=== PATIENT | male | born 1965 | race Two or more races ===

== ENCOUNTER 2019-02-21 04:28 | Emergency (ER) | payer OTHER ==
[~2019-02-21] VITALS: Ht 175.3 cm; Wt 149.7 kg
[2019-02-21 05:54] LABS: Basophils # (auto) 0 uL; Basophils % (auto) 0.4 % (0.0-2.0); Eosinophils # (auto) 0.1 uL; Eosinophils % (auto) 0.8 % (0.0-7.0); Hematocrit 39.2 % (41.0-53.0); Hemoglobin 13.4 g/dL (13.5-17.5); Lymphocytes # (auto) 0.8 uL; Lymphocytes % (auto) 11.8 % (10.0-50.0); Mean Corpuscular Hemoglobin 32.2 pg (28.0-32.0); Mean Corpuscular Hgb Conc. 34.3 g/dL (32.0-36.0); Mean Corpuscular Volume 93.9 fL (80.0-100.0); Monocytes # (auto) 0.4 uL; Neutrophils # (auto) 5.7 uL; Platelet Count (auto) 178 10^3/uL (140-450); Red Blood Cells 4.17 10^6/uL (4.5-5.90); Red Cell Distribution Width 13.6 % (11.8-14.3); White Blood Cell 7.1 10^3/uL (4.4-10.8)
[2019-02-21 06:06] LABS: Alanine Aminotransferase 26 U/L (16-61); Albumin 3.2 g/dL (3.4-5.0); Anion Gap 7 (5-15); Aspartate Aminotransferase 16 U/L (15-37); Blood Urea Nitrogen 24 mg/dL (7-18); Carbon Dioxide 29 mmol/L (21-32); Chloride 106 mmol/L (98-107); Glucose 108 mg/dL (74-106); Potassium 3.9 mmol/L (3.5-5.1); Sodium 142 mmol/L (136-145)
[2019-02-21 06:12] LABS: Alkaline Phosphatase 71 U/L (45-117); BUN/Creatinine Ratio 16.4; Bilirubin, Total 0.4 mg/dL (0.2-1.0); GFR African American 65 mL/min; GFR Non-African American 54 mL/min; Total Protein 6.6 g/dL (6.4-8.2)
[2019-02-21] MEDS ORDERED: SODIUM CHLORIDE 0.9% 1,000 ML IV ONE (08:41)
[2019-02-21 09:21] LABS: Urine Bacteria NONE SEEN /hpf (None Seen); Urine Blood Negative /uL (Negative); Urine Hyaline Cast FEW /lpf (0 - 2); Urine Specific Gravity 1.018 (1.001-1.035); Urine WBC <1 /hpf (0 - 3)
[2019-02-21 09:29] LABS: INR 1.09 (0.9-1.15); Partial Thromboplastin Time 30.4 sec (23.64-32.05)
[2019-02-21 09:39] LABS: Alcohol, Urine < 3.0 mg/dL (0-5); Amphetamine Screen, Urine NEGATIVE (NEGATIVE); Barbiturate Scree,Urine NEGATIVE (NEGATIVE); Benzodiazephine Screen, Urine NEGATIVE (NEGATIVE); Cannabinoid Screen, Urine NEGATIVE (NEGATIVE); Cocaine Screen, Urine NEGATIVE (NEGATIVE); Opiate Scree,Urine NEGATIVE (NEGATIVE); Phencyclidine Screen, Urine NEGATIVE (NEGATIVE)
[2019-02-21] MEDS ORDERED: CAR3125T OR (10:35)
[2019-02-21] MEDS ORDERED: ISO60SRT PO (10:35)
[2019-02-21] MEDS ORDERED: DIGO1TAB35 PO (10:35)
[2019-02-21] MEDS ORDERED: ALL100T PO (10:35)
[2019-02-21] MEDS ORDERED: CHOL20007 PO (10:35)
[2019-02-21] MEDS ORDERED: APIX5TAB PO (10:35)
[2019-02-21 12:00] VITALS: BP 111/69
== END 2019-02-21 12:27 | disposition home or self-care (01) ==
LOC: EDBD 04:28 → ER 04:28
DX: I42.0 Dilated cardiomyopathy (principal); R55 Syncope and collapse; N18.9 Chronic kidney disease, unspecified; E46 Unspecified protein-calorie malnutrition; I48.91 Unspecified atrial fibrillation; I25.10 Atherosclerotic heart disease of native coronary artery without angina pectoris; Z95.0 Presence of cardiac pacemaker
CPT/HCPCS: 36415; 70450; 71045; 80053; 80307; 81001; 83735; 84484; 85025; 85379; 85610; 85730; 93005; 94761; 96360; 96361; 99284; J7030

== ENCOUNTER 2019-09-21 21:20 | Emergency (ER) | payer OTHER ==
[~2019-09-21] VITALS: Ht 175.3 cm; Wt 136.1 kg
[~2019-09-21 21:20] MED LIST: ALL100T PO; APIX5TAB PO; CAR3125T OR; CHOL20007 PO; DIGO1TAB35 PO; ISO60SRT PO
[2019-09-21] MEDS ORDERED: dilTIAZem 25 MG/5 ML VIAL IV ONE ×2 (21:37→21:45)
[2019-09-21 21:43] LABS: Basophils # (auto) 0.1 10 ^3/uL (0-0.2); Basophils % (auto) 0.7 % (0.0-2.0); Eosinophils # (auto) 0.1 10 ^3/uL (0-0.8); Eosinophils % (auto) 0.7 % (0.0-7.0); Hemoglobin 16.3 g/dL (13.5-17.5); Lymphocytes # (auto) 3.1 10 ^3/uL (0.4-5.4); Lymphocytes % (auto) 22.7 % (10.0-50.0); Mean Corpuscular Hemoglobin 30.6 pg (28.0-32.0); Mean Corpuscular Hgb Conc. 33.3 g/dL (32.0-36.0); Monocytes % (auto) 7.5 % (0.0-12.0); Neutrophils # (auto) 9.2 10 ^3/uL (1.6-8.6); Neutrophils % (auto) 68.4 % (37.0-80.0); Nucleated Red Blood Cells % 0.3 %; Platelet Count (auto) 239 10^3/uL (140-450); Red Blood Cells 5.33 10^6/uL (4.5-5.90); Red Cell Distribution Width 14.4 % (11.8-14.3); White Blood Cell 13.5 10^3/uL (4.4-10.8)
[2019-09-21] MEDS ORDERED: dilTIAZem 120MG ER CAP PO ONE (21:45)
[2019-09-21 21:59] LABS: Anion Gap 7 (5-15); Blood Urea Nitrogen 23 mg/dL (7-18); Carbon Dioxide 29 mmol/L (21-32); Chloride 103 mmol/L (98-107); Glucose 138 mg/dL (74-106); INR 1.16 (0.9-1.15); Magnesium 1.6 mg/dL (1.6-2.6); Partial Thromboplastin Time 35.6 sec (23.64-32.05); Potassium 3.1 mmol/L (3.5-5.1); Sodium 139 mmol/L (136-145)
[2019-09-21 22:02] LABS: Alanine Aminotransferase 25 U/L (16-61); Aspartate Aminotransferase 21 U/L (15-37); BUN/Creatinine Ratio 14.4; GFR African American 59 mL/min; GFR Non-African American 48 mL/min
[2019-09-21 22:06] LABS: Alkaline Phosphatase 90 U/L (45-117); Bilirubin, Total 1.5 mg/dL (0.2-1.0); Total Protein 8.2 g/dL (6.4-8.2)
[2019-09-21 23:36] VITALS: BP 132/76
[2019-09-22] MEDS ORDERED: dilTIAZem 25 MG/5 ML VIAL IV ONE
== END 2019-09-22 00:40 | disposition home or self-care (01) ==
LOC: ER 21:21
DX: I48.20 Chronic atrial fibrillation, unspecified (principal); Z91.14 Patient's other noncompliance with medication regimen; I25.10 Atherosclerotic heart disease of native coronary artery without angina pectoris
CPT/HCPCS: 36415; 71045; 80053; 83735; 83880; 84443; 84484; 85025; 85379; 85610; 85730; 93005; 96374; 96376

== ENCOUNTER 2019-10-02 18:44 | Inpatient (IN) | payer OTHER ==
[~2019-10-02] VITALS: Ht 175.3 cm; Wt 144.2 kg
[2019-10-02 19:10] LABS: Basophils # (auto) 0.2 10 ^3/uL (0-0.2); Basophils % (auto) 1.4 % (0.0-2.0); Eosinophils # (auto) 0.1 10 ^3/uL (0-0.8); Eosinophils % (auto) 0.9 % (0.0-7.0); Hematocrit 46.5 % (41.0-53.0); Hemoglobin 15.5 g/dL (13.5-17.5); Lymphocytes # (auto) 2.9 10 ^3/uL (0.4-5.4); Lymphocytes % (auto) 24.9 % (10.0-50.0); Mean Corpuscular Hemoglobin 30.7 pg (28.0-32.0); Mean Corpuscular Hgb Conc. 33.3 g/dL (32.0-36.0); Mean Corpuscular Volume 92.4 fL (80.0-100.0); Neutrophils # (auto) 7.4 10 ^3/uL (1.6-8.6); Neutrophils % (auto) 63.8 % (37.0-80.0); Nucleated Red Blood Cells % 0.2 %; Platelet Count (auto) 226 10^3/uL (140-450); Red Blood Cells 5.03 10^6/uL (4.5-5.90); Red Cell Distribution Width 15.3 % (11.8-14.3); White Blood Cell 11.6 10^3/uL (4.4-10.8)
[2019-10-02 19:34] LABS: Albumin 3.5 g/dL (3.4-5.0); Anion Gap 6 (5-15); Blood Urea Nitrogen 26 mg/dL (7-18); Calcium 8.3 mg/dL (8.5-10.1); Carbon Dioxide 28 mmol/L (21-32); Chloride 105 mmol/L (98-107); Glucose 99 mg/dL (74-106); Potassium 3.7 mmol/L (3.5-5.1); Sodium 139 mmol/L (136-145)
[2019-10-02 19:40] LABS: Alanine Aminotransferase 23 U/L (16-61); Alkaline Phosphatase 89 U/L (45-117); Aspartate Aminotransferase 16 U/L (15-37); BUN/Creatinine Ratio 18.2; Bilirubin, Total 0.9 mg/dL (0.2-1.0); GFR African American 67 mL/min; GFR Non-African American 55 mL/min; Total Protein 7.6 g/dL (6.4-8.2)
[2019-10-02] MEDS ORDERED: DIGOXIN (250MCG/ML) 2 ML AMPULE IV ONE (20:00)
[2019-10-02 20:52] LABS: INR 1.18 (0.9-1.15); Partial Thromboplastin Time 36.4 sec (23.64-32.05)
[2019-10-02] MEDS ORDERED: CARVEDILOL 3.125 MG TAB PO ONE (21:15)
[2019-10-02] MEDS ORDERED: APIXABAN 5 MG TAB PO SCH (22:00)
[2019-10-02] MEDS ORDERED: NITROGLYCERIN 0.4 MG SL TAB SL PRN (23:00)
[2019-10-02] MEDS ORDERED: MORPHINE SULF INJ 2 MG/ML SYRINGE 1ML IV PRN (23:00)
[2019-10-03] VITALS (8 sets, daily range): BP systolic 105–138; BP diastolic 56–92
[2019-10-03] MEDS ORDERED: ALLO300T2 PO (01:15)
[2019-10-03] MEDS ORDERED: POTA10TA51 PO (01:19)
[2019-10-03] MEDS ORDERED: BUME2TAB5 PO (01:19)
--- NOTE | 2019-10-03 02:25 | NUR ---
Telemetry admit from [facility] admitted to Telemetry unit after SBAR received. Patient oriented to Christin Curtis, primary RN, unit, room, bed, and unit policies regarding patient care and visiting hours. Patient now on continuous telemetry monitoring, tele box # 68 and telemetry reading on arrival to unit is ATRIAL FIB 92. Patient placed on bedside oxygen, weighed by bedscale and encouraged to call if they need something. All questions and concerns addressed, patient verbalized understanding. Note:
--- NOTE | 2019-10-03 06:09 | NUR ---
PT RESTING WITH EYES CLOSED BUT AWAKENS EASILY; DENIES PAIN OR DISCOMFORT;CALL LIGHT IN REACH.
--- NOTE | 2019-10-03 07:30 | NUR ---
Opening Shift Note RECEIVED REPORT FORM NOC RN. Assumed care of patient, awake and alert. No S/S of distress/SOB or pain. BED IN LOWEST, LOCKED POSITION WITH SIDERAILS UP x2 AND CALL LIGHT WITHIN REACH. Instructed on POC and to call for assist PRN, will continue to monitor for changes Q1hr and PRN.
[2019-10-03] MEDS: BUMETANIDE 1 MG TAB PO SCH ×2 (08:24→18:01)
[2019-10-03] MEDS ORDERED: ISOSORBIDE MONONITRATE ER 60 MG TAB PO SCH (10:00)
[2019-10-03] MEDS ORDERED: CARVEDILOL 3.125 MG TAB PO SCH (10:00)
[2019-10-03] MEDS ORDERED: DIGOXIN 0.125 MG TAB PO SCH (10:00)
[2019-10-03] MEDS: APIXABAN 5 MG TAB PO SCH ×2 (11:36→21:13)
[2019-10-03] MEDS: CHOLECALCIFEROL (VITD3) 1,000UNIT=25mCg TAB PO SCH (11:36)
[2019-10-03] MEDS: ALLOPURINOL 100 MG TAB PO SCH (11:37)
--- NOTE | 2019-10-03 15:25 | NUR ---
DR. ROMERO AT BEDSIDE.
--- NOTE | 2019-10-03 15:29 | NUR ---
DR. ROMERO ADVISED THAT PATIENT'S AICD DISCRIMINATORS NEED TO BE CHANGED. INAPPROPRIATELY SHOCKING FOR AFIB.
--- NOTE | 2019-10-03 15:30 | NUR ---
CALL PLACED TO [facility] FOR INTERROGATION OF PATIENT'S AICD. REP ADVISED THEY WOULD CONTACT LOCAL REP.
--- NOTE | 2019-10-03 16:15 | NUR ---
LOCAL REP FROM [facility] CALLED. ADVISED THEY WOULD BE OUT TOMORROW MORNING FOR AICD INTERROGATION.
[2019-10-03] MEDS: CARVEDILOL 12.5 MG TAB PO SCH (17:30)
--- NOTE | 2019-10-03 20:33 | NUR ---
Ambulation: Patient ambulated to bathroom with steady gait. Patient able to void without difficulty.Patient had a HR 150 per cardiac monitor. Patient ambulated back to bed. Patient's HR now is 93. Denies pain, SOB , chest discomfort. Will continue to monitor.
[2019-10-04 05:00] VITALS: BP 122/88
[2019-10-04] MEDS: BUMETANIDE 1 MG TAB PO SCH (06:44)
--- NOTE | 2019-10-04 08:00 | NUR ---
[facility] at bedside interrogating AICD.
[2019-10-04 08:11] VITALS: BP 120/83
[2019-10-04] MEDS: APIXABAN 5 MG TAB PO SCH (08:40)
[2019-10-04] MEDS: CARVEDILOL 12.5 MG TAB PO SCH (08:40)
[2019-10-04] MEDS: CHOLECALCIFEROL (VITD3) 1,000UNIT=25mCg TAB PO SCH (08:40)
[2019-10-04] MEDS: ALLOPURINOL 100 MG TAB PO SCH (08:41)
--- NOTE | 2019-10-04 10:51 | NUR ---
Patient states he does not want home health. He is ready to go home and had already being followed by [facility].
== END 2019-10-04 11:30 | disposition home or self-care (01) | DRG 206 ==
LOC: ER 18:44 → TELE 18:45 → TELE-WESTW 10-03 00:29
PROVIDERS: ADMIT Hospitalist; ATTEND Hospitalist
DX: T82.118A Breakdown (mechanical) of other cardiac electronic device, initial encounter (principal); I42.8 Other cardiomyopathies; I50.9 Heart failure, unspecified; E66.01 Morbid (severe) obesity due to excess calories; Z68.42 Body mass index [BMI] 45.0-49.9, adult; I48.91 Unspecified atrial fibrillation; E87.6 Hypokalemia; Z95.810 Presence of automatic (implantable) cardiac defibrillator; Z79.01 Long term (current) use of anticoagulants; Z79.899 Other long term (current) drug therapy
CPT/HCPCS: 36415; 71045; 80053; 83880; 84443; 84484; 85025; 85610; 85730; 87081; 93005; 96374; G0378

== ENCOUNTER 2023-06-30 05:47 | Emergency (ER) | payer OTHER ==
[~2023-06-30] VITALS: Ht 175.3 cm; Wt 152.0 kg
[~2023-06-30 05:47] MED LIST changes: -ALL100T PO; +ALLO300T2 PO; +BUME2TAB5 PO; -DIGO1TAB35 PO; -ISO60SRT PO; +POTA10TA51 PO
[2023-06-30] MEDS: levETIRAcetam 500 MG TAB PO ONE (07:31)
[2023-06-30 07:36] LABS: Basophils # (auto) 0 10 ^3/uL (0-0.2); Basophils % (auto) 0.6 % (0.0-2.0); Eosinophils # (auto) 0 10 ^3/uL (0-0.8); Eosinophils % (auto) 0.6 % (0.0-7.0); Hematocrit 45.7 % (41.0-53.0); Hemoglobin 15.1 g/dL (13.5-17.5); Lymphocytes # (auto) 0.8 10 ^3/uL (0.4-5.4); Mean Corpuscular Hemoglobin 31.7 pg (28.0-32.0); Mean Corpuscular Hgb Conc. 33.1 g/dL (32.0-36.0); Mean Corpuscular Volume 95.7 fL (80.0-100.0); Monocytes # (auto) 0.4 10 ^3/uL (0-1.3); Monocytes % (auto) 5.7 % (0.0-12.0); Neutrophils # (auto) 6.1 10 ^3/uL (1.6-8.6); Neutrophils % (auto) 82.1 % (37.0-80.0); Red Blood Cells 4.78 10^6/uL (4.5-5.90); Red Cell Distribution Width 14.2 % (11.8-14.3); White Blood Cell 7.5 10^3/uL (4.4-10.8)
[2023-06-30 08:04] LABS: Chloride 108 mmol/L (98-107); Potassium 4.7 mmol/L (3.5-5.1); Sodium 141 mmol/L (136-145)
[2023-06-30 08:05] LABS: Anion Gap 4 (5-15); Carbon Dioxide 29 mmol/L (20-30)
[2023-06-30 08:06] LABS: Calcium 9.1 mg/dL (8.5-10.1)
[2023-06-30 08:10] LABS: BUN/Creatinine Ratio 16.7 (10.0-20.0); Blood Urea Nitrogen 23 mg/dL (9-23); Glucose 115 mg/dL (74-106)
[2023-06-30 09:43] VITALS: BP 129/80; PULSE 65; RESP 18; TEMP 97.9; O2SAT 99
== END 2023-06-30 09:44 | disposition home or self-care (01) ==
LOC: ER 05:47
DX: R56.9 Unspecified convulsions (principal); I48.91 Unspecified atrial fibrillation; Z98.890 Other specified postprocedural states
CPT/HCPCS: 36415; 80048; 84484; 85025; 93005